=== PATIENT | female | born 1955 | race Caucasian/White ===

== ENCOUNTER 2020-12-31 18:15 | Emergency (ER) | payer MEDICARE ==
[~2020-12-31] VITALS: Ht 165.1 cm; Wt 67.2 kg
[~2020-12-31 18:15] MED LIST: CLIN300C9 PO
[2020-12-31] MEDS ORDERED: IV RINGERS SOLUTION,LACTATED 1,000 ML IV ONE (18:30)
[2020-12-31] MEDS ORDERED: IOHEXOL 300 MG/ML 75 ML VIAL. IV ONE (18:45)
--- NOTE | 2020-12-31 18:45 | PHYS DOC ---
Past History Past Medical History: Seizure Past Surgical History: Hysterectomy Alcohol Use: None Drug Use: None Adult General Chief Complaint Chief Complaint: ABDOMINAL PAIN HPI HPI Patient is a 65-year-old female who presents with a chief complaint of abdominal pain and constipation. States she has not had a regular bowel movement in approximately 10 days and has generalized abdominal distention/pain, worse in the left lower quadrant, 7 out of 10 at its worst, dull in nature with no radiation. States she brought this up with her primary care physician who started her on some stool softeners without resolve. Denies any recent travel, illnesses, known ill contacts, fevers, chest pain, shortness of breath, dysuria, hematuria, diarrhea or blood in the stool. States over the last several days she has had a significantly decreased appetite but no nausea or vomiting. Review of Systems Review of Systems Review of systems otherwise unremarkable except noted in HPI Current Medications Current Medications Current Medications Medications (Trade) Dose Ordered Sig/Bart Start Time Stop Time Status Last Admin Dose Admin Lactated Ringer's 1,000 ml @ 1,000 mls/hr 1X ONCE 12/31/20 18:30 12/31/20 19:29 UNV Allergies Allergies Allergies Coded Allergies Type Severity Reaction Last Updated Verified ampicillin Allergy Intermediate rash 06/30/16 Yes Physical Exam Physical Exam Constitutional: Well developed, well nourished, no acute distress, non-toxic appearance. [] HENT: Normocephalic, atraumatic, bilateral external ears normal, oropharynx moist, no oral exudates, nose normal. [] Eyes: conjunctiva normal, no discharge. [] Cardiovascular: Sinus tachycardia Lungs & Thorax: Bilateral breath sounds clear to auscultation [] Abdomen: Bowel sounds normal, soft, left lower quadrant tenderness, no masses, no pulsatile masses. [] Skin: Warm, dry, no erythema, no rash. [] Back: no CVA tenderness. [] Extremities: No tenderness, no cyanosis, no edema. [] Neurologic: Alert and oriented X 3, normal motor function, normal sensory function, no focal deficits noted. [] Psychologic: Affect normal, judgement normal, mood normal. [] Current Patient Data Vital Signs Vital Signs Date Time Temp Pulse Resp B/P (MAP) Pulse Ox O2 Delivery O2 Flow Rate FiO2 12/31/20 18:15 98.1 111 16 141/93 (109) 99 Room Air EKG EKG [] Radiology/Procedures Radiology/Procedures []FINDINGS: Heart size is normal. No pericardial. Visualized lung bases are clear. No pleural effusion. Liver, spleen, pancreas and adrenals are unremarkable. Gallstones are noted within the gallbladder. No pericholecystic fluid Kidneys demonstrate symmetric enhancement. No perinephric inflammation or hydronephrosis. No renal or ureteral calculi are identified. Bladder is partially distended with mucosal hyperenhancement. Uterus is absent. No abnormal adnexal. Large amount stool is noted in the ascending colon. There is diffuse wall thickening of active the descending colon. There is some stranding and edema in the mesentery diffusely. Small amount of free fluid noted in the pelvis. Abdominal aorta has a normal course and caliber. Abdominal vasculature is patent. No enlarged intra-abdominal lymph nodes are identified. No suspicious osseous lesions or acute fractures. IMPRESSION: 1. Diffuse wall thickening affecting the descending colon may be infectious or inflammatory in etiology. 2. There is small amount of free fluid in the abdomen with reticulation of the mesentery, which is nonspecific. Findings could be reactive to the above process. Continued follow-up imaging is recommended to reassess. 3. Cholelithiasis Exposure: One or more of the following in the visualized dose reduction techniques were utilized for this examination: 1. Automated exposure control 2. Adjustment of the MA and/or KV according to patient size 3. Use of iterative of reconstructive technique Electronically signed by: Agustin Rabago MD (12/31/2020 8:06 PM) [facility] Heart Score C/O Chest Pain: No Risk Factors: Risk Factors: DM, Current or recent (<one month) smoker, HTN, HLP, family history of CAD, obesity. Risk Scores: Risk Factors: DM, Current or recent (<one month) smoker, HTN, HLP, family histo ry of CAD, obesity. Course & Med Decision Making Course & Med Decision Making Patient is a 65-year-old female presents with abdominal pain and distention with constipation Vital signs notable for tachycardia. Physical exam noted above. Patient placed on the monitor with IV access established and IV fluid resuscitation begun. Made NPO. Patient given Zofran for nausea, morphine for pain. CT notable for enteritis/colitis. Started on Cipro and Flagyl in the emergency department. CT also notable for stool in the ascending colon. Discussed all findings with patient and advised on antibiotic treatment at home. Advised on pain management at home. Advised on proper nutrition and hydration over the next couple of days. Advised to call primary care physician first thing in the morning to update on ED visit and current treatment and set up a follow-up as soon as she can. Gave strict return precautions to the ED. Patient grateful, verbalized understanding and agreed with plan of discharge. [] Dragon Disclaimer Dragon Disclaimer This electronic medical record was generated, in whole or in part, using a voice recognition dictation system. Departure Departure: Impression: Primary Impression: Abdominal pain Additional Impression: Colitis Disposition: 01 DC HOME SELF CARE/HOMELESS Condition: GOOD Referrals: JACQUE RAMOS MD (PCP) Patient Instructions: Colitis Additional Instructions: Please read all the attached information. Please take your antibiotics, nausea medicine and pain medicine as prescribed and discussed in the ED. As discussed, over the next couple of days be sure to eat several small white meals over the course of the day, nothing heavy including things like saltine crackers, chicken soup and other things discussed. Please be sure to maintain appropriate hydration with water and/or Pedialyte/Gatorade as discussed. Please call your primary care physician first thing in the morning to update on your ED visit and treatment as well as to set up a follow-up appointment as soon as possible. Please come back to the ED with new or concerning symptoms as discussed. Scripts Hydrocodone Bit/Acetaminophen (HYDROCODONE-APAP 5-325 ) 1 Each Tablet 1 TAB PO TID PRN for abdominal pain for 5 Days, #15 TAB 0 Refills Prov: GELY OCONNELL MD 12/31/20 Ondansetron (ONDANSETRON ODT) 4 Mg Tab.rapdis 4 MG PO TID for Nausea/Vomiting for 7 Days, #21 TAB Prov: GELY OCONNELL MD 12/31/20 Metronidazole (METRONIDAZOLE) 500 Mg Tablet 1 TAB PO BID for colitis for 7 Days, #13 TAB 0 Refills Prov: GELY OCONNELL MD 12/31/20 Ciprofloxacin Hcl (CIPRO) 500 Mg Tablet 1 TAB PO BID for colitis for 7 Days, #13 TAB 0 Refills Prov: GELY OCONNELL MD 12/31/20 Problem Qualifiers GELY OCONNELL MD Dec 31, 2020 18:45
[2020-12-31 19:16] LABS: BASO # 0.1 x10^3/uL (0.0-0.2); BASO % 1 % (0-3); EOS # 0.1 x10^3/uL (0.0-0.7); EOS % 2 % (0-3); HEMATOCRIT 33.6 % (36.0-47.0); HEMOGLOBIN 10.5 g/dL (12.0-15.5); LYMPH # 1.2 x10^3/uL (1.0-4.8); LYMPH % 18 % (24-48); MEAN CORPUSCULAR HEMOGLOBIN 24 pg (25-35); MEAN CORPUSCULAR HGB CONC 31 g/dL (31-37); MEAN CORPUSCULAR VOLUME 76 fL (79-100); MONO # 0.7 x10^3/uL (0.0-1.1); MONO % 10 % (0-9); NEUT # 4.6 x10^3uL (1.8-7.7); NEUT % 69 % (31-73); PLATELET COUNT 347 x10^3/uL (140-400); RED CELL DISTRIBUTION WIDTH 20.3 % (11.5-14.5); WHITE BLOOD COUNT 6.6 x10^3/uL (4.0-11.0)
[2020-12-31 19:22] LABS: CREATININE 0.9 mg/dL (0.6-1.0); GFR 62.5; POTASSIUM 3.5 mmol/L (3.5-5.1)
[2020-12-31 19:28] LABS: ALBUMIN 3.4 g/dL (3.4-5.0); ALBUMIN/GLOBULIN RATIO 0.7 (1.0-1.7); TOTAL BILIRUBIN 0.2 mg/dL (0.2-1.0)
--- NOTE | 2020-12-31 20:08 | RAD ---
Exam: CT of abdomen and pelvis with contrast INDICATION: Abdominal pain TECHNIQUE: Sequential axial images through the abdomen and pelvis obtained following the administrati on of 75 mL of Omni 300 IV contrast. Sagittal and coronal reformatted images were reconstructed from the axial data and reviewed. Comparisons: None FINDINGS: Heart size is normal. No pericardial. Visualized lung bases are clear. No pleural effusion. Liver, spleen, pancreas and adrenals are unremarkable. Gallstones are noted within the gallbladder. N o pericholecystic fluid Kidneys demonstrate symmetric enhancement. No perinephric inflammation or hydronephrosis. No renal or ureteral calculi are identified. Bladder is partially distended with mucosal hyperenhancement. Uterus is absent. No abnormal adnexal. Large amount stool is noted in the ascending colon. There is diffuse wall thickening of active the de scending colon. There is some stranding and edema in the mesentery diffusely. Small amount of free fl uid noted in the pelvis. Abdominal aorta has a normal course and caliber. Abdominal vasculature is patent. No enlarged intra-abdominal lymph nodes are identified. No suspicious osseous lesions or acute fractures. IMPRESSION: 1. Diffuse wall thickening affecting the descending colon may be infectious or inflammatory in etiol ogy. 2. There is small amount of free fluid in the abdomen with reticulation of the mesentery, which is n onspecific. Findings could be reactive to the above process. Continued follow-up imaging is recommend ed to reassess. 3. Cholelithiasis Exposure: One or more of the following in the visualized dose reduction techniques were utilized for this examination: 1. Automated exposure control 2. Adjustment of the MA and/or KV according to patient size 3. Use of iterative of reconstructive technique Electronically signed by: Agustni Rabago MD (12/31/2020 8:06 PM) [facility]
[2020-12-31] MEDS ORDERED: metroNIDAZOLE 500 MG TABLET PO ONE (20:30)
[2020-12-31] MEDS ORDERED: CIPROFLOXACIN HCL 500 MG TABLET PO ONE (20:30)
[2020-12-31] MEDS ORDERED: ONDANSETRON PF 4 MG/2 ML VIAL. IVP ONE (20:30)
[2020-12-31 20:31] LABS: ANISOCYTOSIS SLIGHT
[2020-12-31 20:32] LABS: PLT ESTIMATE ADEQUATE (ADEQUATE)
[2020-12-31] MEDS ORDERED: MORPHINE SULFATE 4 MG/ML DISP.SYRIN. IV ONE (21:00)
[2020-12-31 21:07] LABS: BACTERIA,URINE MOD /HPF (0-FEW); BILIRUBIN,URINE NEG (NEG); CLARITY,URINE CLOUDY; COLOR,URINE YELLOW; GLUCOSE,URINE NEG (NEG); NITRITE,URINE POS (NEG); SQUAMOUS EPITHELIAL CELL,UR MANY /LPF; UROBILINOGEN,URINE 0.2 mg/dL (0.2 mg/dL); WBC,URINE >40 /HPF (0-4)
[2020-12-31] MEDS ORDERED: HYDR-2155 PO (21:09)
[2020-12-31] MEDS ORDERED: CIPR500T94 PO (21:09)
[2020-12-31] MEDS ORDERED: METR-34 PO (21:09)
[2020-12-31] MEDS ORDERED: ONDA4TAB12 PO (21:09)
[2020-12-31 21:51] VITALS: BP 156/93
== END 2020-12-31 21:51 | disposition home or self-care (01) ==
LOC: ER 18:15
DX: K52.9 Noninfective gastroenteritis and colitis, unspecified (principal); K59.00 Constipation, unspecified; Z90.710 Acquired absence of both cervix and uterus; Z88.1 Allergy status to other antibiotic agents
CPT/HCPCS: 36415; 74177; 80053; 81001; 83690; 85025; 87086; 96361; 96374; 96375; 99284; J2270; J2405; J7120; Q9967